=== PATIENT | female | born 1995 | race Caucasian/White ===

== ENCOUNTER 2018-08-21 13:16 | Emergency (ER) | payer SELFPAY ==
[2018-08-21] MEDS ORDERED: Sodium Chloride 0.9% 1,000 ML IV ONE (13:57)
[2018-08-21] MEDS ORDERED: Ondansetron 4 MG/2 ML SDV IVPUSH ONE (13:57)
--- NOTE | 2018-08-21 14:46 | CR ---
EXAMINATION: Portable chest radiograph. HISTORY: Cough. FINDINGS: The trachea is midline. The cardiomediastinal silhouette is within normal limits. No pulmonary infiltrates, effusions or pneumothorax. Osseous structures appear unremarkable. IMPRESSION: No acute cardiopulmonary process.
[2018-08-21] MEDS ORDERED: Acetaminophen 500 MG Tab PO ONE (15:07)
--- NOTE | 2018-08-21 15:10 | EDM.PDOC ---
ED HPI GENERAL MEDICAL PROBLEM - General Chief Complaint: Respiratory Problem Stated Complaint: COUGHING SICK Time Seen by Provider: 08/21/18 13:36 Source of Information: Reports: Patient History Limitations: Reports: No Limitations - History of Present Illness INITIAL COMMENTS - FREE TEXT/NARRATIVE: Presents reporting a three-day history of cough, fevers, nausea vomiting, dizziness. She states she threw up 3 times yesterday. No abdominal pain, diarrhea, constipation, dysuria. She has only drank 3 sips of oral fluids today. She is on her period but her periods have been very irregular and light. Smokes cigarettes. chest Pain Score (Numeric/FACES): 5 - Related Data Allergies Allergy/AdvReac Type Severity Reaction Status Date / Time No Known Allergies Allergy Verified 08/21/18 13:38 Home Meds: Home Meds Ondansetron [Zofran ODT] 1 tab PO Q6H PRN #4 tab.dis 08/21/18 [Rx] guaiFENesin/Codeine Phosphate [Cheratussin AC Syrup] 10 ml PO Q6HR PRN #1 bottle 08/21/18 [Rx] predniSONE [Prednisone] 2 tab PO DAILY #10 tablet 08/21/18 [Rx] Past Medical History - Past Health History Medical/Surgical History: Denies Medical/Surgical History - Infectious Disease History Infectious Disease History: Reports: Chicken Pox - Past Surgical History HEENT Surgical History: Reports: Oral Surgery Social & Family History - Family History Family Medical History: Noncontributory - Tobacco Use Smoking Status *Q: Current Every Day Smoker Years of Tobacco use: 3 Packs/Tins Daily: 0.3 - Caffeine Use Caffeine Use: Reports: Coffee, Energy Drinks, Soda, Tea - Recreational Drug Use Recreational Drug Use: No ED ROS GENERAL - Review of Systems Review Of Systems: ROS reveals no pertinent complaints other than HPI. ED EXAM, GENERAL - Physical Exam Exam: See Below General Appearance: Alert, Mild Distress Ears: Normal External Exam, Normal TMs Nose: Normal Inspection Throat/Mouth: Normal Inspection, Inflammation (Pharyngeal) Head: Atraumatic, Normocephalic Neck: Normal Inspection Respiratory/Chest: No Respiratory Distress, Lungs Clear Cardiovascular: Normal Peripheral Pulses, Regular Rate, Rhythm, No Murmur GI/Abdominal: Soft, Non-Tender, No Distention Back Exam: Normal Inspection Extremities: Normal Inspection Neurological: Alert, Oriented, Normal Cognition Psychiatric: Normal Affect, Normal Mood Skin Exam: Warm, Dry, Intact, Normal Color, No Rash Lymphatic: No Adenopathy Course - Vital Signs Last Recorded V/S: Last Vital Signs Temp 38.3 C H 08/21/18 13:35 Pulse 121 H 08/21/18 13:35 Resp 18 08/21/18 13:35 BP 112/74 08/21/18 13:35 Pulse Ox 95 08/21/18 13:35 - Orders/Labs/Meds Orders: Active Orders 24 hr Category Date Time Status Chest 1V Frontal [CR] Stat Exams 08/21/18 13:36 Ordered CBC WITH AUTO DIFF [HEME] Stat Lab 08/21/18 13:51 Ordered CMP [COMPREHENSIVE METABOLIC PN,CMP] [CHEM] Stat Lab 08/21/18 13:51 Ordered HCG QUALITATIVE,URINE [URCHEM] Stat Lab 08/21/18 13:36 Ordered INFLUENZA A+B AG SCREEN [RM] Stat Lab 08/21/18 13:42 Received STREP SCRN A RAPID W CULT CONF [RM] Stat Lab 08/21/18 13:46 Ordered Departure - Departure Time of Disposition: 16:03 Disposition: Home, Self-Care 01 Clinical Impression: Bronchitis Vomiting Qualifiers: Vomiting type: unspecified Vomiting Intractability: non-intractable Nausea presence: with nausea Qualified Code(s): R11.2 - Nausea with vomiting, unspecified - Discharge Information Referrals: PCP,Unknown [Primary Care Provider] - [facility] [Outside] [facility] [Outside] Additional Instructions: 1. Prednisone 20 mg tablets, 2 tablets once a day, starting today 2. Cough syrup every 6 hours as needed for cough, no driving or operating machinery 3. Zofran every 8 hours as needed for nausea 4. Drink plenty of fluids and rest. 5. BRAT diet today: Bananas, rice, applesauce, toast, advance as tolerated 6. Follow-up in primary care - My Orders Last 24 Hours: My Active Orders 08/21/18 13:51 CBC WITH AUTO DIFF [HEME] Stat CMP [COMPREHENSIVE METABOLIC PN,CMP] [CHEM] Stat - Assessment/Plan Last 24 Hours: My Active Orders 08/21/18 13:51 CBC WITH AUTO DIFF [HEME] Stat CMP [COMPREHENSIVE METABOLIC PN,CMP] [CHEM] Stat
== END 2018-08-21 16:25 | disposition home or self-care (01) ==
LOC: MW.ED 13:16
DX: J40 Bronchitis, not specified as acute or chronic (principal); R11.2 Nausea with vomiting, unspecified; F17.210 Nicotine dependence, cigarettes, uncomplicated
CPT/HCPCS: 36415; 71045; 80053; 81025; 85025; 87081; 87804; 87880; 96361; 96374; 99283; A9270; J2405; J7040

== ENCOUNTER 2020-04-09 09:16 | Emergency (ER) | payer BC ==
[2020-04-09] MEDS ORDERED: Sodium Chloride 0.9% 10 ML Syringe FLUSH PRN (09:34)
[2020-04-09] MEDS ORDERED: Acetaminophen 500 MG Tab PO ONE (09:34)
[2020-04-09] MEDS ORDERED: Sodium Chloride 0.9% 2.5 ML Syringe FLUSH PRN (09:34)
--- NOTE | 2020-04-09 09:38 | EDM.PDOC ---
ED HPI GENERAL MEDICAL PROBLEM - General Chief Complaint: Chest Pain Stated Complaint: CHEST PAINS Time Seen by Provider: 04/09/20 09:26 - History of Present Illness INITIAL COMMENTS - FREE TEXT/NARRATIVE: History of present illness: [] 31 weeks . She has been short of breath for more than 2 months. She has had ultrasounds documented IUP. The patient had fast heart rate this morning while she was at work. She has b een short of breath for 2 months but the heart rate was associated with a new chest pain in the left lateral sternal border. The size of the area of 2 fingers lateral to the upper part of the left sternal border she reports moderate pain. The patient has not been sleeping well at all. She works hard all day and she is on her feet all day. She does not have any recent immobilization or bedrest. She is not diabetic. She was a smoker until . She has a negative personal and family history of thromboembolic disease. She has not been immobilized in a cast. Review of systems: As per history of present illness and below otherwise all systems reviewed and negative. Past medical history: As per history of present illness and as reviewed below otherwise noncontributory. Surgical history: As per history of present illness and as reviewed below otherwise noncontributory. Social history: No reported history of drug or alcohol abuse. Family history: As per history of present illness and as reviewed below otherwise noncontributory. Physical exam: Constitutional -patient is moderately obese and has a gravid uterus consistent with the stated age of gestation. Well developed, well-nourished and in no acute distress HEENT - normocephalic, no evidence of trauma - external nose and mouth normal - no mass in neck and no JVD - mucosae moist EYES - full EOM, PERRL, no icterus - no evidence of inflammation, injection, or drainage Respiratory -slight tenderness in the left sternal border but it does not exactly reproduce her pain. No respiratory distress, equal bilateral expansion, lungs clear to auscultation and no abnormal lung sounds Cardiovascular - Regular Rhythm with S1 and S2 appreciated and no murmur, gallop or rub. GI - abdomen soft without distension or organomegaly - normal bowel sounds - no guard or rebound Musculoskeletal no gross deformity of long bones or joints - no tenderness, swelling or edema Neurologic - Alert and oriented times four - CN II-XII grossly intact - motor sensory and coordination symmetrically normal Psychiatric - appropriate mood and affect with normal thought content Hematologic - No petechiae or purpura - mucosa appropriate color and sclera not pale - normal nail bed color and refill Integument - no rash or evidence of trauma - normal turgor Diagnostics: [] Therapeutics: [] Impression: [] Plan: [] Definitive disposition and diagnosis as appropriate pending reevaluation and review of above. middle chest Pain Score (Numeric/FACES): 3 - Related Data Allergies Allergy/AdvReac Type Severity Reaction Status Date / Time No Known Allergies Allergy Verified 04/09/20 09:28 Home Meds: Home Meds Codeine Phosphate/Guaifenesin [Cheratussin AC Syrup] 10 ml PO Q6HR PRN #1 bottle 08/21/18 [Rx] Ondansetron [Zofran ODT] 1 tab PO Q6H PRN #4 tab.dis 08/21/18 [Rx] predniSONE [Prednisone] 2 tab PO DAILY #10 tablet 08/21/18 [Rx] Past Medical History - Past Health History Medical/Surgical History: Denies Medical/Surgical History - Infectious Disease History Infectious Disease History: Reports: Chicken Pox - Past Surgical History HEENT Surgical History: Reports: Oral Surgery Social & Family History - Family History Family Medical History: No Pertinent Family History - Tobacco Use Tobacco Use Status *Q: Former Tobacco User Used Tobacco, but Quit: Yes Month/Year Tobacco Last Used: 2019 - Caffeine Use Caffeine Use: Reports: None - Recreational Drug Use Recreational Drug Use: No ED ROS GENERAL - Review of Systems Review Of Systems: Comprehensive ROS is negative, except as noted in HPI. ED EXAM, GENERAL - Physical Exam Exam: See Below Free Text/Narrative:: My physical exam is in the HPI #1 Interpretation EKG Interpretation Comments: EKG sinus rhythm heart rate 95 MT interval 110 axis 39 QT 419 QRS normal. No prior for comparison. Impression no obvious acute injury. Course - Vital Signs Text/Narrative:: 11:11 AM there are 2 findings that make the consideration of pulmonary embolus more likely. Her D-dimers elevated more than I would expect with just a normal uneventful and the windows migration technician reported difficulty compressing the left femoral canal because of pain there. Patient understands that we will do a CT angio for her safety. Last Recorded V/S: Last Vital Signs Temp 36.6 C 12/17/20 09:19 Pulse 100 04/09/20 10:37 Resp 18 04/09/20 10:37 BP 138/79 04/09/20 10:37 Pulse Ox 97 04/09/20 10:37 - Orders/Labs/Meds Orders: Active Orders 24 hr Category Date Time Status EKG Documentation Completion [RC] AM Care 04/09/20 09:34 Active Sodium Chloride 0.9% [Saline Flush] Med 04/09/20 09:34 Active 10 ml FLUSH ASDIRECTED PRN Sodium Chloride 0.9% [Saline Flush] Med 04/09/20 09:34 Active 2.5 ml FLUSH ASDIRECTED PRN Saline Lock Insert [OM.PC] Stat Oth 04/09/20 09:34 Ordered Medication Orders Sodium Chloride (Saline Flush) 10 ml FLUSH ASDIRECTED PRN PRN Reason: Keep Vein Open Last Admin: 04/09/20 09:47 Dose: 10 ml Documented by: JODY Sodium Chloride (Saline Flush) 2.5 ml FLUSH ASDIRECTED PRN PRN Reason: Keep Vein Open Last Admin: 04/09/20 09:47 Dose: 2.5 ml Documented by: JODY Labs: Laboratory Tests 04/09/20 04/09/20 04/09/20 Range/Units 09:28 09:28 09:28 WBC 10.85 (4.0-11.0) K/uL RBC 4.02 L (4.30-5.90) M/uL Hgb 11.7 L (12.0-16.0) g/dL Hct 35.9 L (36.0-46.0) % MCV 89.3 (80.0-98.0) fL MCH 29.1 (27.0-32.0) pg MCHC 32.6 (31.0-37.0) g/dL RDW Std Deviation 43.5 (28.0-62.0) fl RDW Coeff of Chaka 13 (11.0-15.0) % Plt Count 255 (150-400) K/uL MPV 11.20 (7.40-12.00) fL Neut % (Auto) 66.4 (48.0-80.0) % Lymph % (Auto) 25.0 (16.0-40.0) % [place] % (Auto) 7.5 (0.0-15.0) % Eos % (Auto) 1.0 (0.0-7.0) % Baso % (Auto) 0.1 (0.0-1.5) % Neut # (Auto) 7.2 H (1.4-5.7) K/uL Lymph # (Auto) 2.7 H (0.6-2.4) K/uL [place] # (Auto) 0.8 (0.0-0.8) K/uL Eos # (Auto) 0.1 (0.0-0.7) K/uL Baso # (Auto) 0.0 (0.0-0.1) K/uL Nucleated RBC % 0.0 /100WBC Nucleated RBCs # 0 K/uL D-Dimer, Quantitative 3.78 H (0.0-0.50) mg/L FEU Sodium 136 (136-145) mmol/L Potassium 3.9 (3.5-5.1) mmol/L Chloride 104 (98-107) mmol/L Carbon Dioxide 18.2 L (21.0-32.0) mmol/L BUN 8 (7.0-18.0) mg/dL Creatinine 0.8 (0.6-1.0) mg/dL Est Cr Clr Drug Dosing 93.64 mL/min Estimated GFR (MDRD) > 60.0 ml/min Glucose 170 H (74-106) mg/dL Calcium 9.2 (8.5-10.1) mg/dL Total Bilirubin 0.2 (0.2-1.0) mg/dL AST 11 L (15-37) IU/L ALT 20 (14-63) IU/L Alkaline Phosphatase 108 (46-116) U/L Troponin I < 0.050 (0.000-0.056) ng/mL Total Protein 6.6 (6.4-8.2) g/dL Albumin 2.6 L (3.4-5.0) g/dL Globulin 4.0 (2.6-4.0) g/dL Albumin/Globulin Ratio 0.7 L (0.9-1.6) Meds: Medications Generic Name Dose Route Start Last Admin Trade Name Freq PRN Reason Stop Dose Admin Sodium Chloride 10 ml 04/09/20 09:34 04/09/20 09:47 Saline Flush FLUSH 10 ml ASDIRECTED PRN Administration Keep Vein Open Sodium Chloride 2.5 ml 04/09/20 09:34 04/09/20 09:47 Saline Flush FLUSH 2.5 ml ASDIRECTED PRN Administration Keep Vein Open Discontinued Medications Generic Name Dose Route Start Last Admin Trade Name Freq PRN Reason Stop Dose Admin Acetaminophen 1,000 mg 04/09/20 09:34 04/09/20 09:44 Tylenol Extra Strength PO 04/09/20 09:35 1,000 mg ONETIME ONE Administration Iopamidol 50 ml 04/09/20 12:25 04/09/20 12:25 Isovue Multipack-370 (76%) IVPUSH 04/09/20 12:26 50 ml ONETIME STA Administration Departure - Departure Time of Disposition: 12:54 Disposition: Home, Self-Care 01 Condition: Good Clinical Impression: Costochondritis, acute - Discharge Information Instructions: Costochondritis, [id number] Referrals: PCP,None [Primary Care Provider] - Forms: ED Department Discharge Additional Instructions: [facility] - Primary Care [address] [place] [id number] [id number] [facility] [address] [place] [id number] [facility] [address] [place] [id number] The following information is given to patients seen in the emergency department who are being discharged to home. This information is to outline your options for follow-up care. We provide all patients seen in our emergency department with a follow-up referral. The need for follow-up, as well as the timing and circumstances, are variable depending upon the specifics of your emergency department visit. If you don't have a primary care physician on staff, we will provide you with a referral. We always advise you to contact your personal physician following an emergency department visit to inform them of the circumstance of the visit and for follow-up with them and/or the need for any referrals to a consulting specialist. The emergency department will also refer you to a specialist when appropriate. This referral assures that you have the opportunity for follow-up care with a specialist. All of these measure are taken in an effort to provide you with optimal care, which includes your follow-up. Under all circumstances we always encourage you to contact your private physician who remains a resource for coordinating your care. When calling for follow-up care, please make the office aware that this follow-up is from your recent emergency room visit. If for any reason you are refused follow-up, please contact the [facility] Emergency Department at and asked to speak to the emergency department charge nurse. Sepsis Event Note (ED) - Evaluation Sepsis Screening Result: No Definite Risk - Focused Exam Vital Signs: Vital Signs Temp Pulse Resp BP Pulse Ox 04/09/20 10:37 100 18 138/79 97 04/09/20 09:19 36.6 C 95 20 148/92 H 99 - My Orders Last 24 Hours: My Active Orders 04/09/20 09:34 EKG Documentation Completion [RC] AM Sodium Chloride 0.9% [Saline Flush] 10 ml FLUSH ASDIRECTED PRN Sodium Chloride 0.9% [Saline Flush] 2.5 ml FLUSH ASDIRECTED PRN Saline Lock Insert [OM.PC] Stat - Assessment/Plan Last 24 Hours: My Active Orders 04/09/20 09:34 EKG Documentation Completion [RC] AM Sodium Chloride 0.9% [Saline Flush] 10 ml FLUSH ASDIRECTED PRN Sodium Chloride 0.9% [Saline Flush] 2.5 ml FLUSH ASDIRECTED PRN Saline Lock Insert [OM.PC] Stat
[2020-04-09 10:01] LABS: BLOOD UREA NITROGEN,BUN 8 mg/dL (7.0-18.0); CARBON DIOXIDE,CO2 18.2 mmol/L (21.0-32.0); CHLORIDE,CL 104 mmol/L (98-107); GLUCOSE RANDOM 170 mg/dL (74-106); POTASSIUM,K 3.9 mmol/L (3.5-5.1); SODIUM,NA 136 mmol/L (136-145)
--- NOTE | 2020-04-09 10:10 | CR ---
INDICATION: Chest pain COMPARISON: August 21, 2018 TECHNIQUE: Single-view portable chest radiograph FINDINGS: TUBES AND LINES: None. HEART AND MEDIASTINUM: The heart size is normal. The mediastinal contour appears normal for patient age. LUNGS AND PLEURAL SPACES: The lungs appear normal.The pleural spaces are unremarkable. OSSEOUS STRUCTURES: Age-appropriate appearance. No acute focal finding. IMPRESSION: No evidence of active pulmonary disease. Dictated by Srini Lang MD @ Apr 09 2020 10:07AM Signed by Dr. Srini Lang @ Apr 09 2020 10:08AM
--- NOTE | 2020-04-09 10:43 | US ---
INDICATION: Chest pain. COMPARISON: None FINDINGS: Ultrasound of the venous drainage of both lower extremities shows no evidence of deep venous thrombosis. There is normal antegrade flow from the posterior tibial and popliteal veins superiorly through the common femoral vein in both legs. There is normal augmentation and compressibility of these veins. The left common femoral vein and superficial femoral vein were difficult to compress because of pain. However, we demonstrated normal Doppler and augmentation in this area. There were no limitations in visualization on the right. IMPRESSION: There is no evidence of deep venous thrombosis in either lower extremity. There were some technical limitations regarding the left side as discussed above Dictated by Srini Lang MD @ Apr 09 2020 10:39AM Signed by Dr. Srini Lang @ Apr 09 2020 10:42AM
[2020-04-09] MEDS ORDERED: Iopamidol 755 MG/ML 500 ML Multipack Bottle IVPUSH STA (12:25)
--- NOTE | 2020-04-09 12:45 | CT ---
INDICATION: Shortness of breath. Thirty[age]one weeks . TECHNIQUE: CT chest PE was acquired with 50 cc Isovue 370 IV contrast. COMPARISON: None. FINDINGS: Heart and vasculature: No sign of moderate to large or central pulmonary embolism. Smaller pulmonary arteries are not adequately assessed on this exam. Heart size is normal. Thoracic aorta and pulmonary artery are normal in caliber. Lungs and pleural: No suspicious nodules or infiltrates. No pleural effusions, pleural thickening, or pneumothorax. Lymph nodes/mediastinum: No mediastinal, hilar, or axillary adenopathy. Thyroid gland is normal. Chest wall: No masses. Upper abdomen: Normal. Bones: Unremarkable for age. IMPRESSION: Negative CT of the chest. No sign of pulmonary embolism and the lungs are clear. Please note that all CT scans at this facility use dose modulation, iterative reconstruction, and/or weight-based dosing when appropriate to reduce radiation dose to as low as reasonably achievable. Dictated by Adolph Michelle MD @ Apr 09 2020 12:37PM Signed by Dr. Adolph Michelle @ Apr 09 2020 12:44PM
== END 2020-04-09 13:20 | disposition home or self-care (01) ==
LOC: MW.ED 09:16
DX: O99.891 Other specified diseases and conditions complicating pregnancy (principal); M94.0 Chondrocostal junction syndrome [Tietze]; O99.213 Obesity complicating pregnancy, third trimester; E66.9 Obesity, unspecified; Z87.891 Personal history of nicotine dependence; Z3A.31 31 weeks gestation of pregnancy
CPT/HCPCS: 36415; 71045; 71275; 80053; 84484; 85025; 85379; 93005; 93970; 99285; A9270; Q9967; 93010; 99283

== ENCOUNTER 2020-05-05 22:17 | Inpatient (IN) | payer BC ==
[2020-05-05] MEDS ORDERED: Sodium Chloride 0.9% 10 ML SDV IV PRN (22:32)
[2020-05-05] MEDS ORDERED: Sodium Chloride 0.9% 10 ML Syringe FLUSH PRN (22:32)
[2020-05-05] MEDS ORDERED: Carboprost Tromethamine 250 MCG/1 ML Amp IM PRN (22:32)
[2020-05-05] MEDS ORDERED: Tranexamic Acid 1,000 MG in Sodium Chloride 0.9% 100 ML IV PRN (22:32)
[2020-05-05] MEDS ORDERED: Lidocaine 1% 50 ML MDV INJECT PRN (22:32)
[2020-05-05] MEDS ORDERED: Methylergonovine 0.2 MG/1 ML Amp IM PRN (22:32)
[2020-05-05] MEDS ORDERED: Water For Irrigation,Sterile 1,000 ML Container IRR PRN (22:32)
[2020-05-05] MEDS ORDERED: Sodium Chloride 0.9% 2.5 ML Syringe FLUSH PRN (22:32)
[2020-05-05] MEDS ORDERED: Misoprostol 200 MCG Tab PO PRN (22:32)
[2020-05-05] MEDS ORDERED: Nalbuphine 10 MG/1 ML Vial IVPUSH PRN (22:32)
[2020-05-05] MEDS ORDERED: Oxytocin/0.9 % Sodium Chloride 30 UNIT/500 ML BAG IV SCH (22:45)
[2020-05-05] MEDS ORDERED: Lactated Ringers 1,000 ML IV SCH (22:45)
[2020-05-06] MEDS ORDERED: Ampicillin 2 GM in Sodium Chloride 0.9% 100 ML IV ONE (00:01)
[2020-05-06] MEDS: Butorphanol 1 MG/ML SDV IVPUSH PRN ×2 (00:13→01:38)
--- NOTE | 2020-05-06 00:55 | PCM.LDHP ---
L&D History of Present Illness - General Date of Service: 05/06/20 Admit Problem/Dx: Patient Status Order with Admit Dx/Problem 05/05/20 22:32 Patient Status [ADT] Routine Admission Diagnosis/Problem Admission Diagnosis/Problem Planned Source of Information: Patient History Limitations: Reports: No Limitations - History of Present Illness Pain Score: 10 Improves with: Reports: None Worsens with: Reports: None Associated Symptoms: Reports: N - Related Data Allergies/Adverse Reactions: Allergies Allergy/AdvReac Type Severity Reaction Status Date / Time No Known Allergies Allergy Verified 05/05/20 22:31 Home Medications: Home Meds Codeine Phosphate/Guaifenesin [Cheratussin AC Syrup] 10 ml PO Q6HR PRN #1 bottle 08/21/18 [Rx] Ondansetron [Zofran ODT] 1 tab PO Q6H PRN #4 tab.dis 08/21/18 [Rx] predniSONE [Prednisone] 2 tab PO DAILY #10 tablet 08/21/18 [Rx] Past Medical History - Past Health History Medical/Surgical History: Denies 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: Dermatologic History: Reports: Other (See Below) Other Dermatologic History: pt stated that she is on benadryl for constant itc agnes over entire body - Infectious Disease History Infectious Disease History: Reports: Chicken Pox - Past Surgical History HEENT Surgical History: Reports: Oral Surgery, Other (See Below) Other HEENT Surgeries/Procedures: wisdom teeth removed when she was around 16-17 years of age Dermatological Surgical History: Reports: None Social & Family History - Family History Family Medical History: No Pertinent Family History Respiratory: Reports: Asthma Other Respiratory Family Hisory: sister has asthma OBGYN: Reports: Endocrine/Metabolic: Reports: Other (See Below) Other Endocrine/Metabolic Family History: Grandfather has Diabetes type unknown Oncologic: Reports: Ovarian, Other (See Below) Other Oncologic Family History: greatgrandmother had ovarian cancer, grandma has either cervical or breast cancer pt could no recall which one though - Tobacco Use Tobacco Use Status *Q: Former Tobacco User Years of Tobacco use: 3 Used Tobacco, but Quit: Yes Month/Year Tobacco Last Used: September 2019 Second Hand Smoke Exposure: No - Caffeine Use Caffeine Use: Reports: Coffee, Soda - Recreational Drug Use Recreational Drug Use: No H&P Review of Systems - Review of Systems: Review Of Systems: See Below General: Reports: No Symptoms HEENT: Reports: No Symptoms Pulmonary: Reports: No Symptoms Cardiovascular: Reports: No Symptoms Gastrointestinal: Reports: No Symptoms Genitourinary: Reports: No Symptoms Musculoskeletal: Reports: No Symptoms Skin: Reports: No Symptoms Psychiatric: Reports: No Symptoms Neurological: Reports: No Symptoms Hematologic/Lymphatic: Reports: No Symptoms Immunologic: Reports: No Symptoms L&D Exam - Exam Exam: See Below - Vital Signs Weight: 114.305 kg - OB Specific Contraction Intensity: Moderate - Shah Score Shah Score Cervix Position: Midposition Shah Score Consistency: Soft Shah Score Effacement: >80% Shah Score Dilation: 1-2 cm - Exam General: Alert, Oriented HEENT: PERRLA, Conjunctiva Clear, EACs Clear, EOMI, Hearing Intact, Mucosa Moist & [place], Nares Patent, Normal Nasal Septum, Posterior Pharynx Clear, TMs Clear Neck: Supple, Trachea Midline Lungs: Clear to Auscultation, Normal Respiratory Effort Cardiovascular: Regular Rate, Regular Rhythm GI/Abdominal Exam: Normal Bowel Sounds, Soft, Non-Tender, No Organomegaly, No Distention, No Abnormal Bruit, No Mass, Pelvis Stable Rectal Exam: Normal Exam, Normal Rectal Tone Genitourinary: Normal external exam, Normal bimanual exam, Normal speculum exam Back Exam: Normal Inspection, Full Range of Motion Extremities: Normal Inspection, Normal Range of Motion, Non-Tender, No Pedal Edema, Normal Capillary Refill Skin: Warm, Dry, Intact Neurological: Cranial Nerves Intact, Reflexes Equal Bilateral Psychiatric: Alert, Normal Affect, Normal Mood - Patient Data Lab Results Last 24 hrs: Laboratory Results - last 24 hr 05/05/20 05/05/20 Range/Units 23:25 23:25 WBC 12.81 H (4.0-11.0) K/uL RBC 3.86 L (4.30-5.90) M/uL Hgb 11.0 L (12.0-16.0) g/dL Hct 33.4 L (36.0-46.0) % MCV 86.5 (80.0-98.0) fL MCH 28.5 (27.0-32.0) pg MCHC 32.9 (31.0-37.0) g/dL RDW Std Deviation 43.1 (28.0-62.0) fl RDW Coeff of Chaka 14 (11.0-15.0) % Plt Count 241 (150-400) K/uL MPV 11.90 (7.40-12.00) fL Nucleated RBC % 0.0 /100WBC Nucleated RBCs # 0 K/uL Blood Type O POSITIVE Antibody Screen NEGATIVE Result Diagrams: 05/05/20 23:25 Problem List Initiated/Reviewed/Updated: Yes Orders Last 24hrs: Active Orders 24 hr Category Date Time Status Patient Status [ADT] Routine ADT 05/05/20 22:32 Active Heart Tones [RC] CONTINUOUS Care 05/05/20 22:32 Active Non Stress Test [RC] PER UNIT ROUTINE Care 05/05/20 22:32 Active May Shower [RC] ASDIRECTED Care 05/05/20 22:32 Active Notify Provider [RC] PRN Care 05/05/20 22:32 Active Up ad Zee [RC] ASDIRECTED Care 05/05/20 22:32 Active Vaginal Exam [RC] PRN Care 05/05/20 22:32 Active Vital Signs [RC] PER UNIT ROUTINE Care 05/05/20 22:32 Active RPR (SYPHILIS SERO) W/ RFLX [REF] Routine Lab 05/05/20 23:25 Received UA W/O MICROSCOPIC [URIN] Routine Lab 05/05/20 22:05 Ordered Butorphanol [Stadol] Med 05/05/20 22:32 Active 1 mg IVPUSH Q1H PRN Carboprost Tromethamine [Hemabate DS] Med 05/05/20 22:32 Active 250 mcg IM ASDIRECTED PRN Lactated Ringers [Ringers, Lactated] 1,000 ml Med 05/05/20 22:45 Active IV ASDIRECTED Lidocaine 1% [Xylocaine 1%] Med 05/05/20 22:32 Active 50 ml INJECT ONETIME PRN Methylergonovine [Methergine] Med 05/05/20 22:32 Active 0.2 mg IM ASDIRECTED PRN Nalbuphine [Nubain] Med 05/05/20 22:32 Active 10 mg IVPUSH Q1H PRN Oxytocin/0.9 % Sodium Chloride [Oxytocin 30 Unit/500 ML Med 05/05/20 22:45 Active -NS] 30 unit in 500 ml IV TITRATE Sodium Chloride 0.9% [Normal Saline] Med 05/05/20 22:32 Active 10 ml IV ASDIRECTED PRN Sodium Chloride 0.9% [Saline Flush] Med 05/05/20 22:32 Active 10 ml FLUSH ASDIRECTED PRN Sodium Chloride 0.9% [Saline Flush] Med 05/05/20 22:32 Active 2.5 ml FLUSH ASDIRECTED PRN Tranexamic Acid [Cyklokapron] 1,000 mg Med 05/05/20 22:32 Active Sodium Chloride 0.9% [Normal Saline] 100 ml IV ONETIME Water For Irrigation,Sterile [Sterile Water for Med 05/05/20 22:32 Active Irrigation] 1,000 ml IRR ASDIRECTED PRN miSOPROStoL [Cytotec] Med 05/05/20 22:32 Active 200 mcg PO ONETIME PRN Scalp Electrode [WOMSER] Per Unit Routine Oth 05/05/20 22:32 Ordered Peripheral IV Insertion Adult [OM.PC] Routine Oth 05/05/20 22:32 Ordered Resuscitation Status Routine Resus Stat 05/05/20 22:32 Ordered Medication Orders Butorphanol Tartrate (Stadol) 1 mg IVPUSH Q1H PRN PRN Reason: Pain Last Admin: 05/06/20 00:13 Dose: 1 mg Documented by: DIANN Carboprost Tromethamine (Hemabate Ds) 250 mcg IM ASDIRECTED PRN PRN Reason: Post Hemorrhage Oxytocin/Sodium Chloride (Oxytocin 30 Unit/500 Ml-Ns) 30 unit in 500 mls @ 500 mls/hr IV TITRATE [facility] Tranexamic Acid 1,000 mg/ (Sodium Chloride) 110 mls @ 660 mls/hr IV ONETIME PRN PRN Reason: Bleeding Lactated Ringer's (Ringers, Lactated) 1,000 mls @ 150 mls/hr IV ASDIRECTED SABI Last Admin: 05/06/20 00:17 Dose: 150 mls/hr Documented by: DIANN Lidocaine HCl (Xylocaine 1%) 50 ml INJECT ONETIME PRN PRN Reason: Laceration repair Methylergonovine Maleate (Methergine) 0.2 mg IM ASDIRECTED PRN PRN Reason: Post Hemorrhage Misoprostol (Cytotec) 200 mcg PO ONETIME PRN PRN Reason: Post Hemorrhage Nalbuphine HCl (Nubain) 10 mg IVPUSH Q1H PRN PRN Reason: Pain (severe 7-10) Sodium Chloride (Saline Flush) 10 ml FLUSH ASDIRECTED PRN PRN Reason: Keep Vein Open Sodium Chloride (Saline Flush) 2.5 ml FLUSH ASDIRECTED PRN PRN Reason: Keep Vein Open Sodium Chloride (Normal Saline) 10 ml IV ASDIRECTED PRN PRN Reason: IV Use Sterile Water (Sterile Water For Irrigation) 1,000 ml IRR ASDIRECTED PRN PRN Reason: delivery Assessment/Plan Comment:: [id number] admitted with SROM and in active labor.
[2020-05-06] MEDS ORDERED: fentaNYL 100 MCG/2 ML SDV ONE (03:06)
[2020-05-06] MEDS ORDERED: Bupivicaine/fentaNYL/NS 250 ML ONE (03:07)
--- NOTE | 2020-05-06 03:48 | PCM.PREANE ---
Preanesthetic Assessment - Anesthesia/Transfusion/Family Hx Anesthesia History: Prior Anesthesia Without Reaction Family History of Anesthesia Reaction: No Transfusion History: No Prior Transfusion(s) Intubation History: Unknown - Review of Systems General: No Symptoms Pulmonary: No Symptoms Cardiovascular: No Symptoms Gastrointestinal: Abdominal Pain (labor pain) Neurological: No Symptoms Other: Reports: None - Physical Assessment Height: 5 ft 4 in Weight: 114.305 kg ASA Class: 2 Mental Status: Alert & Oriented x3 Airway Class: Mallampati = 2 Dentition: Reports: Normal Dentition Thyro-Mental Finger Breadths: 3 Mouth Opening Finger Breadths: 3 ROM/Head Extension: Full Lungs: Clear to Auscultation, Normal Respiratory Effort Cardiovascular: Regular Rate, Regular Rhythm - Lab Values: Laboratory Last Values WBC 12.81 K/uL (4.0-11.0) H 05/05/20 23: RBC 3.86 M/uL (4.30-5.90) L 05/05/20 23:25 Hgb 11.0 g/dL (12.0-16.0) L 05/05/20 23:25 Hct 33.4 % (36.0-46.0) L 05/05/20 23:25 MCV 86.5 fL (80.0-98.0) 05/05/20 23:25 MCH 28.5 pg (27.0-32.0) 05/05/20 23: MCHC 32.9 g/dL (31.0-37.0) 05/05/20 23:25 RDW Std Deviation 43.1 fl (28.0-62.0) 05/05/20 23:25 RDW Coeff of Chaka 14 % (11.0-15.0) 05/05/20 23:25 Plt Count 241 K/uL (150-400) 05/05/20 23:25 MPV 11.90 fL (7.40-12.00) 05/05/20 23: Nucleated RBC % 0.0 /100WBC 05/05/20 23:25 Nucleated RBCs # 0 K/uL 05/05/20 23:25 SARS-CoV-2 RNA (BETH) NEGATIVE (NEGATIVE) 05/05/20 23:35 Blood Type O POSITIVE 05/05/20 23: Antibody Screen NEGATIVE 05/05/20 23:25 - Allergies Allergies/Adverse Reactions: Allergies Allergy/AdvReac Type Severity Reaction Status Date / Time No Known Allergies Allergy Verified 05/05/20 22:31 - Blood Blood Available: No - Anesthesia Plan Pre-Op Medication Ordered: None - Acknowledgements Anesthesia Type Planned: Epidural Pt an Appropriate Candidate for the Planned Anesthesia: Yes Alternatives and Risks of Anesthesia Discussed w Pt/Guardian: Yes Pt/Guardian Understands and Agrees with Anesthesia Plan: Yes PreAnesthesia Questionnaire - Past Health History Medical/Surgical History: Denies 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: Endocrine/Metabolic History: Reports: Obesity/BMI 30+ Dermatologic History: Reports: Other (See Below) Other Dermatologic History: pt stated that she is on benadryl for constant itching over entire body - Infectious Disease History Infectious Disease History: Reports: Chicken Pox - Past Surgical History HEENT Surgical History: Reports: Oral Surgery, Other (See Below) Other HEENT Surgeries/Procedures: wisdom teeth removed when she was around 16-17 years of age Dermatological Surgical History: Reports: None - SUBSTANCE USE Tobacco Use Status *Q: Former Tobacco User Tobacco Use Within Last Twelve Months: No Second Hand Smoke Exposure: No Recreational Drug Use History: No - HOME MEDS Home Medications: Home Meds Codeine Phosphate/Guaifenesin [Cheratussin AC Syrup] 10 ml PO Q6HR PRN #1 bottle 08/21/18 [Rx] Ondansetron [Zofran ODT] 1 tab PO Q6H PRN #4 tab.dis 08/21/18 [Rx] predniSONE [Prednisone] 2 tab PO DAILY #10 tablet 08/21/18 [Rx] - CURRENT (IN HOUSE) MEDS Current Meds: Current Medications Butorphanol Tartrate (Stadol) 1 mg IVPUSH Q1H PRN PRN Reason: Pain Last Admin: 05/06/20 01:38 Dose: 1 mg Documented by: Carboprost Tromethamine (Hemabate Ds) 250 mcg IM ASDIRECTED PRN PRN Reason: Post Hemorrhage Oxytocin/Sodium Chloride (Oxytocin 30 Unit/500 Ml-Ns) 30 unit in 500 mls @ 500 mls/hr IV TITRATE SABI Tranexamic Acid 1,000 mg/ (Sodium Chloride) 110 mls @ 660 mls/hr IV ONETIME PRN PRN Reason: Bleeding Lactated Ringer's (Ringers, Lactated) 1,000 mls @ 150 mls/hr IV ASDIRECTED [facility] Last Admin: 05/06/20 00:17 Dose: 150 mls/hr Documented by: Ampicillin Sodium 1 gm/ Sodium (Chloride) 50 mls @ 100 mls/hr IV Q4H [facility] Lidocaine HCl (Xylocaine 1%) 50 ml INJECT ONETIME PRN PRN Reason: Laceration repair Methylergonovine Maleate (Methergine) 0.2 mg IM ASDIRECTED PRN PRN Reason: Post Hemorrhage Misoprostol (Cytotec) 200 mcg PO ONETIME PRN PRN Reason: Post Hemorrhage Nalbuphine HCl (Nubain) 10 mg IVPUSH Q1H PRN PRN Reason: Pain (severe 7-10) Sodium Chloride (Saline Flush) 10 ml FLUSH ASDIRECTED PRN PRN Reason: Keep Vein Open Sodium Chloride (Saline Flush) 2.5 ml FLUSH ASDIRECTED PRN PRN Reason: Keep Vein Open Sodium Chloride (Normal Saline) 10 ml IV ASDIRECTED PRN PRN Reason: IV Use Sterile Water (Sterile Water For Irrigation) 1,000 ml IRR ASDIRECTED PRN PRN Reason: delivery Discontinued Medications Fentanyl (Sublimaze) Confirm Administered Dose 100 mcg .ROUTE .BOLD [employer] ONE Stop: 05/06/20 03:07 Ampicillin Sodium 2 gm/ Sodium (Chloride) 100 mls @ 200 mls/hr IV ONETIME ONE Stop: 05/06/20 00:30 Last Admin: 05/06/20 00:16 Dose: 200 mls/hr Documented by: Fentanyl/Bupivacaine HCl (Fentanyl/Bupivacaine/Ns 2 Mcg-0.125% 250 Ml) Confirm Administered Dose 250 mls @ as directed .ROUTE .[facility]riendas.cl-MED ONE Stop: 05/06/20 03:08
[2020-05-06] MEDS ORDERED: Ampicillin 1 GM in Sodium Chloride 0.9% 50 ML IV SCH ×4 (04:00)
[2020-05-06] MEDS ORDERED: ePHEDrine 50 MG/ML SDV ONE (04:15)
[2020-05-06] MEDS ORDERED: Ampicillin 1 GM Vial ONE (04:15)
[2020-05-06] MEDS ORDERED: Sodium Chloride 0.9% 50 ML ONE (04:15)
--- NOTE | 2020-05-06 05:03 | PCM.SN.2 ---
- Free Text/Narrative Note: Ned was called into the patient's room and given an update on this patient whose epidural and management was being provided by Dr. Hernandez (Darryl) by Mariella DENNY. She mentions that they would like to stop the epidural for now until the baby recovers. Vera was made aware of the plan, and that by stopping the epidural, that the labor pains would return. Vera is currently dilated to 9cm. Once the baby recovers, Mariella will contact me.
[2020-05-06] MEDS ORDERED: Benzocaine/Menthol 20%-0.5% Spray 78 GM Cannister TOP PRN (06:28)
[2020-05-06] MEDS ORDERED: Ibuprofen 800 MG Tab PO PRN (06:28)
[2020-05-06] MEDS ORDERED: Witch Hazel Medicated Pads 40/Jar TOP PRN (06:28)
[2020-05-06] MEDS ORDERED: oxyCODONE 5 MG Tab PO PRN (06:28)
[2020-05-06] MEDS ORDERED: Bisacodyl 10 MG Supp RECTAL PRN (06:28)
[2020-05-06] MEDS ORDERED: Ibuprofen 400 MG Tab PO PRN (06:28)
[2020-05-06] MEDS ORDERED: Lanolin 100% Cream 7 GM Tube TOP PRN (06:28)
[2020-05-06] MEDS ORDERED: Acetaminophen 500 MG Tab PO PRN (06:28)
[2020-05-06] MEDS ORDERED: Furosemide 20 MG Tab PO ONE (06:30)
--- NOTE | 2020-05-06 07:49 | OR ---
SURGEON: Adis Leal MD DATE OF PROCEDURE: 05/06/2020 DELIVERY NOTE Ms. Louis is a 24-year-old patient. She is primigravida. She is 35 plus 4. She is followed in our clinic jointly by myself and the nurse loom cleaner. The patient's care was uncomplicated until late in her where it was complicated, started with having fluctuating and elevated blood pressure. The patient is admitted to Labor and Delivery at 35 plus 4 days with spontaneous rupture of the membranes. At the time of the admission, she was dilated to 3 cm, vertex, 90%, and -2 station. Her amniotic fluid was clear. She was having contraction every 2 to 3 minutes, adequate and moderate in strength contraction. The patient continued to labor on her own without the aid of any stimulation and she progressed nicely. She had epidural anesthesia at 8 to 9 cm, and after that she became complete complete at 6 a.m. and then after pushing for about 45 minutes the patient accomplished normal spontaneous vaginal delivery, female fetus. The blood bank technician was in attendance at the delivery. The fetus cried immediately. score and weight is not available at this time. The placenta delivered spontaneous, complete, and intact, and there was no labial, vaginal, or perineal laceration. Estimated blood loss was 300 to 350 mL. heart rate was category 1 through the entire process of labor. There was no complication in the labor and in the delivery process of this patient. JULIANNA / AGNIESZKA /[id number]
[2020-05-06] MEDS ORDERED: Calcium Carbonate 500 MG Tab.Chew PO PRN (09:02)
[2020-05-06] MEDS: Acetaminophen 500 MG Tab PO PRN (15:46)
[2020-05-06] MEDS ORDERED: Furosemide 20 MG/2 ML VIAL IVPUSH ONE (17:21)
[2020-05-06] MEDS ORDERED: Aluminum Hydroxide/Magnesium Hydroxide/Simethicone Susp 30 ML Cup PO ONE (17:22)
[2020-05-06] MEDS: Docusate Sodium 100 MG Cap PO PRN (21:13)
[2020-05-07] MEDS ORDERED: Furosemide 20 MG/2 ML VIAL IVPUSH ONE ×2 (06:00→18:29)
[2020-05-07] MEDS: Acetaminophen 500 MG Tab PO PRN ×2 (08:21→18:42)
--- NOTE | 2020-05-07 08:41 | PCM48HPAN ---
Post Anesthesia Note - EVALUATION WITHIN 48HRS OF ANESTHETIC Vital Signs in Normal Range: Yes Patient Participated in Evaluation: Yes Respiratory Function Stable: Yes Airway Patent: Yes Cardiovascular Function Stable: Yes Hydration Status Stable: Yes Pain Control Satisfactory: Yes Nausea and Vomiting Control Satisfactory: Yes Mental Status Recovered: Yes Vital Signs: Last Vital Signs Temp 36.8 C 05/07/20 05:12 Pulse 102 H 05/07/20 05:12 Resp 17 05/07/20 05:12 BP 139/73 05/07/20 05:12 Pulse Ox 97 05/07/20 05:12 - COMMENTS/OBSERVATIONS Free Text/Narrative:: Reports mild lumbar soreness, and mild to moderate incisional pain, with satisfactory pain control. Pt has marked LE edema bilat., and has received lasix. Pt reports transient numbness/tingling in feet, and a spot of numbness, pain, heat, and firmness in posterior right thigh. Exacerbated with sitting, and pain is relieved with standing/walking. I suspect these symptoms are related to the significant LE edema. Both patient and RN instructed to report to anesthesia if symptoms worsen, if new areas of numbness develop, or if other neurologic symptoms manifest. Dr. Meier. is aware of these symptoms and following as well, per RN. Ambulating well without assistance, reports full return of strength to BLE.
--- NOTE | 2020-05-07 18:01 | PCM.PNPP ---
- General Info Date of Service: 05/07/20 Admission Dx/Problem (Free Text): Patient Status Order with Admit Dx/Problem 05/05/20 22:32 Patient Status [ADT] Routine Admission Diagnosis/Problem Admission Diagnosis/Problem Planned Subjective Update: 24yo G1 now P1 s/p uncomplicated at 35w5d after SROM. c/b pre-eclampsia and significant pedal edema. care unremarkable. Patient has received 20mg lasix BID for diuresis purpose. Patient reports significant urine output and improvment of the swelling and legs tightness and tenderness. Denies localized legs pain, tingling or numbness. Minimal bleeding, and pain well control. Ambulate without dizziness Functional Status: Reports: Pain Controlled - Review of Systems General: Reports: No Symptoms HEENT: Reports: No Symptoms Pulmonary: Reports: No Symptoms Cardiovascular: Reports: No Symptoms Gastrointestinal: Reports: No Symptoms Genitourinary: Reports: No Symptoms Musculoskeletal: Reports: No Symptoms Skin: Reports: No Symptoms Neurological: Reports: No Symptoms Psychiatric: Reports: No Symptoms - General Info Date of Service: 05/07/20 - Patient Data Vital Signs - Most Recent: Last Vital Signs Temp 98.1 F 05/07/20 16:06 Pulse 94 05/07/20 16:06 Resp 17 05/07/20 16:06 BP 158/71 H 05/07/20 16:06 Pulse Ox 100 05/07/20 16:06 Weight - Most Recent: 114.305 kg I&O - Last 24 Hours: Intake & Output 05/07/20 05/07/20 05/07/20 06:59 14:59 22:59 Intake Total 118 Output Total 3700 1000 Balance -3582 -1000 Lab Results - Last 24 Hours: Laboratory Results - last 24 hr 05/07/20 05/07/20 Range/Units 04:40 04:40 WBC 14.60 H (4.0-11.0) K/uL RBC 3.29 L (4.30-5.90) M/uL Hgb 9.3 L (12.0-16.0) g/dL Hct 29.0 L (36.0-46.0) % MCV 88.1 (80.0-98.0) fL MCH 28.3 (27.0-32.0) pg MCHC 32.1 (31.0-37.0) g/dL RDW Std Deviation 44.4 (28.0-62.0) fl RDW Coeff of Chaka 14 (11.0-15.0) % Plt Count 225 (150-400) K/uL MPV 11.50 (7.40-12.00) fL Nucleated RBC % 0.0 /100WBC Nucleated RBCs # 0 K/uL Creatinine 0.8 (0.6-1.0) mg/dL Est Cr Clr Drug Dosing 93.64 mL/min Estimated GFR (MDRD) > 60.0 ml/min Med Orders - Current: Current Medications Acetaminophen (Tylenol Extra Strength) 500 mg PO Q4H PRN PRN Reason: Pain Acetaminophen (Tylenol Extra Strength) 1,000 mg PO Q4H PRN PRN Reason: Pain Last Admin: 05/07/20 08:21 Dose: 1,000 mg Documented by: Benzocaine/Menthol (Dermoplast Pain Relief 20%-0.5% [place]) 78 gm TOP ASDIRECTED PRN PRN Reason: Perineal Comfort Measure Bisacodyl (Dulcolax) 10 mg RECTAL ONETIME PRN PRN Reason: Constipation Last Admin: 05/06/20 23:27 Dose: 10 mg Documented by: Butorphanol Tartrate (Stadol) 1 mg IVPUSH Q1H PRN PRN Reason: Pain Last Admin: 05/06/20 01:38 Dose: 1 mg Documented by: Calcium Carbonate/Glycine (Tums) 1,000 mg PO Q2HR PRN PRN Reason: Indigestion Last Admin: 05/06/20 11:53 Dose: 1,000 mg Documented by: Carboprost Tromethamine (Hemabate Ds) 250 mcg IM ASDIRECTED PRN PRN Reason: Post Hemorrhage Docusate Sodium (Colace) 100 mg PO BID PRN PRN Reason: Constipation Last Admin: 05/06/20 21:13 Dose: 100 mg Documented by: Emollient Ointment (Lansinoh Hpa) 0 gm TOP ASDIRECTED PRN PRN Reason: Sore Nipples Oxytocin/Sodium Chloride (Oxytocin 30 Unit/500 Ml-Ns) 30 unit in 500 mls @ 500 mls/hr IV TITRATE [facility] Last Admin: 05/06/20 06:19 Dose: 500 mls/hr Documented by: Tranexamic Acid 1,000 mg/ (Sodium Chloride) 110 mls @ 660 mls/hr IV ONETIME PRN PRN Reason: Bleeding Lactated Ringer's (Ringers, Lactated) 1,000 mls @ 150 mls/hr IV ASDIRECTED [facility] Last Admin: 05/06/20 00:17 Dose: 150 mls/hr Documented by: Ampicillin Sodium 1 gm/ Sodium (Chloride) 50 mls @ 100 mls/hr IV Q4H [facility] Last Admin: 05/06/20 04:42 Dose: 100 mls/hr Documented by: Ibuprofen (Motrin) 400 mg PO Q4H PRN PRN Reason: Pain Ibuprofen (Motrin) 800 mg PO Q6H PRN PRN Reason: Pain Last Admin: 05/06/20 11:53 Dose: 800 mg Documented by: Lidocaine HCl (Xylocaine 1%) 50 ml INJECT ONETIME PRN PRN Reason: Laceration repair Methylergonovine Maleate (Methergine) 0.2 mg IM ASDIRECTED PRN PRN Reason: Post Hemorrhage Misoprostol (Cytotec) 200 mcg PO ONETIME PRN PRN Reason: Post Hemorrhage Nalbuphine HCl (Nubain) 10 mg IVPUSH Q1H PRN PRN Reason: Pain (severe 7-10) Oxycodone HCl (Oxycodone) 5 mg PO Q2H PRN PRN Reason: Pain Sodium Chloride (Saline Flush) 10 ml FLUSH ASDIRECTED PRN PRN Reason: Keep Vein Open Sodium Chloride (Saline Flush) 2.5 ml FLUSH ASDIRECTED PRN PRN Reason: Keep Vein Open Sodium Chloride (Normal Saline) 10 ml IV ASDIRECTED PRN PRN Reason: IV Use Sterile Water (Sterile Water For Irrigation) 1,000 ml IRR ASDIRECTED PRN PRN Reason: delivery Witch Connie (Tucks) 1 pad TOP ASDIRECTED PRN PRN Reason: comfort care Discontinued Medications Al Hydroxide/Mg Hydroxide (Mag-Al Plus) 30 ml PO ONETIME ONE Stop: 05/06/20 17:23 Last Admin: 05/06/20 17:38 Dose: 30 ml Documented by: Ampicillin Sodium (Ampicillin) Confirm Administered Dose 1 gm .ROUTE .STK-MED ONE Stop: 05/06/20 04:16 Last Admin: 05/06/20 04:42 Dose: 1 gm Documented by: Ephedrine Sulfate (Ephedrine Sulfate) Confirm Administered Dose 50 mg .ROUTE .STK-MED ONE Stop: 05/06/20 04:16 Fentanyl (Sublimaze) Confirm Administered Dose 100 mcg .ROUTE .STK-MED ONE Stop: 05/06/20 03:07 Furosemide (Lasix) 20 mg PO ONETIME ONE Stop: 05/06/20 06:31 Last Admin: 05/06/20 06:57 Dose: 20 mg Documented by: Furosemide (Lasix) 20 mg IVPUSH ONETIME ONE Stop: 05/06/20 17:22 Last Admin: 05/06/20 17:38 Dose: 20 mg Documented by: Furosemide (Lasix) 20 mg IVPUSH ONETIME ONE Stop: 05/07/20 06:01 Last Admin: 05/07/20 05:00 Dose: 20 mg Documented by: Ampicillin Sodium 2 gm/ Sodium (Chloride) 100 mls @ 200 mls/hr IV ONETIME ONE Stop: 05/06/20 00:30 Last Admin: 05/06/20 00:16 Dose: 200 mls/hr Documented by: Fentanyl/Bupivacaine HCl (Fentanyl/Bupivacaine/Ns 2 Mcg-0.125% 250 Ml) Confirm Administered Dose 250 mls @ as directed .ROUTE .STK-MED ONE Stop: 05/06/20 03:08 Sodium Chloride (Normal Saline) Confirm Administered Dose 50 mls @ as directed .ROUTE .STK-MED ONE Stop: 05/06/20 04:16 - Infant Interaction Disposition, : [place] transfer to higher level of care Interaction: Not Applicable Support Person: Significant Other - Recovery Exam Fundal Tone: Firm Fundal Level: 1 Fingerbreadths Below Umbilicus Fundal Placement: Midline Lochia Amount: Scant Lochia Color: Rubra/Red Perineum Description: Intact, Minimal Bruising/Swelling Episiotomy/Laceration: None Bladder Status: Voiding Urinary Elimination: Voided - Exam General: Alert, Oriented Neck: Supple Lungs: Normal Respiratory Effort Cardiovascular: Regular Rate GI/Abdominal Exam: Soft, Non-Tender Extremities: Pedal Edema Psy/Mental Status: Alert, Normal Affect, Normal Mood - Problem List & Annotations (1) delivery, delivered SNOMED Code(s): 602976680, [id number] Code(s): O60.10X0 - LABOR W DELIVERY, UNSP TRIMESTER, UNSP Status: Acute Current Visit: Yes (2) Preeclampsia SNOMED Code(s): 443071387 Code(s): O14.90 - UNSPECIFIED PRE-ECLAMPSIA, UNSPECIFIED TRIMESTER Status: Acute Current Visit: Yes (3) Edema during SNOMED Code(s): 004011417, 354516934 Code(s): O12.00 - GESTATIONAL EDEMA, UNSPECIFIED TRIMESTER Status: Acute Current Visit: Yes - Problem List Review Problem List Initiated/Reviewed/Updated: Yes - My Orders Last 24 Hours: My Active Orders 05/07/20 Breakfast Fluid Restriction [DIET] Sodium Restricted Diet [DIET] - Plan Plan:: Continue with routine care continue lasix BID and oral fluid restriction. Plan to discharge tomorrow
[2020-05-07] MEDS: Docusate Sodium 100 MG Cap PO PRN (20:49)
[2020-05-08] MEDS ORDERED: hydrOXYzine Pamoate 25 MG Cap PO ONE (01:02)
[2020-05-08] MEDS: Acetaminophen 500 MG Tab PO PRN (06:37)
[2020-05-08] MEDS ORDERED: Furosemide 20 MG/2 ML VIAL IVPUSH ONE (07:00)
--- NOTE | 2020-05-08 08:10 | PCM.PNPP ---
- General Info Date of Service: 05/08/20 Admission Dx/Problem (Free Text): Patient Status Order with Admit Dx/Problem 05/05/20 22:32 Patient Status [ADT] Routine Admission Diagnosis/Problem Admission Diagnosis/Problem Planned Subjective Update: 24yo G1 now P1 s/p uncomplicated at 35w5d after SROM. c/b pre-eclampsia and significant pedal edema. care unremarkable. Patient has received 20mg lasix BID for diuresis purpose. Patient reports significant urine output and improvment of the swelling and legs tightness and tenderness. Denies localized legs pain, tingling or numbness. Minimal bleeding, and pain well control. Ambulate without dizziness PP Day 2 Vera reports significant improvement of the swelling of her legs/feet bilaterally. She also reports less "tightness" in her legs. She reports "finally" getting some good sleep after 0100 and a dose of Vistaril. Small amount of lochia rubra, changed her pad once over night; pain well-controlled. Ambulating well and without dizziness; tolerating diet. Functional Status: Reports: Pain Controlled, Tolerating Diet, Ambulating, Urinating - Review of Systems General: Reports: No Symptoms HEENT: Reports: No Symptoms Pulmonary: Reports: No Symptoms Cardiovascular: Reports: No Symptoms Gastrointestinal: Reports: No Symptoms Genitourinary: Reports: No Symptoms Musculoskeletal: Reports: No Symptoms Skin: Reports: No Symptoms Neurological: Reports: No Symptoms Psychiatric: Reports: No Symptoms - General Info Date of Service: 05/08/20 - Patient Data Vital Signs - Most Recent: Last Vital Signs Temp 97.5 F 05/08/20 06:32 Pulse 84 05/08/20 06:32 Resp 16 05/08/20 06:32 BP 133/80 05/08/20 06:32 Pulse Ox 99 05/08/20 06:32 Weight - Most Recent: 252 lb I&O - Last 24 Hours: Intake & Output 05/07/20 05/08/20 05/08/20 22:59 06:59 14:59 Intake Total 170 Output Total 2600 1300 Balance -2600 -1130 Med Orders - Current: Current Medications Acetaminophen (Tylenol Extra Strength) 500 mg PO Q4H PRN PRN Reason: Pain Acetaminophen (Tylenol Extra Strength) 1,000 mg PO Q4H PRN PRN Reason: Pain Last Admin: 05/08/20 06:37 Dose: 1,000 mg Documented by: Benzocaine/Menthol (Dermoplast Pain Relief 20%-0.5% [place]) 78 gm TOP ASDIRECTED PRN PRN Reason: Perineal Comfort Measure Bisacodyl (Dulcolax) 10 mg RECTAL ONETIME PRN PRN Reason: Constipation Last Admin: 05/06/20 23:27 Dose: 10 mg Documented by: Butorphanol Tartrate (Stadol) 1 mg IVPUSH Q1H PRN PRN Reason: Pain Last Admin: 05/06/20 01:38 Dose: 1 mg Documented by: Calcium Carbonate/Glycine (Tums) 1,000 mg PO Q2HR PRN PRN Reason: Indigestion Last Admin: 05/06/20 11:53 Dose: 1,000 mg Documented by: Carboprost Tromethamine (Hemabate Ds) 250 mcg IM ASDIRECTED PRN PRN Reason: Post Hemorrhage Docusate Sodium (Colace) 100 mg PO BID PRN PRN Reason: Constipation Last Admin: 05/07/20 20:49 Dose: 100 mg Documented by: Emollient Ointment (Lansinoh Hpa) 0 gm TOP ASDIRECTED PRN PRN Reason: Sore Nipples Oxytocin/Sodium Chloride (Oxytocin 30 Unit/500 Ml-Ns) 30 unit in 500 mls @ 500 mls/hr IV TITRATE [facility] Last Admin: 05/06/20 06:19 Dose: 500 mls/hr Documented by: Tranexamic Acid 1,000 mg/ (Sodium Chloride) 110 mls @ 660 mls/hr IV ONETIME PRN PRN Reason: Bleeding Lactated Ringer's (Ringers, Lactated) 1,000 mls @ 150 mls/hr IV ASDIRECTED [facility] Last Admin: 05/06/20 00:17 Dose: 150 mls/hr Documented by: Ampicillin Sodium 1 gm/ Sodium (Chloride) 50 mls @ 100 mls/hr IV Q4H [facility] Last Admin: 05/06/20 04:42 Dose: 100 mls/hr Documented by: Ibuprofen (Motrin) 400 mg PO Q4H PRN PRN Reason: Pain Ibuprofen (Motrin) 800 mg PO Q6H PRN PRN Reason: Pain Last Admin: 05/06/20 11:53 Dose: 800 mg Documented by: Lidocaine HCl (Xylocaine 1%) 50 ml INJECT ONETIME PRN PRN Reason: Laceration repair Methylergonovine Maleate (Methergine) 0.2 mg IM ASDIRECTED PRN PRN Reason: Post Hemorrhage Misoprostol (Cytotec) 200 mcg PO ONETIME PRN PRN Reason: Post Hemorrhage Nalbuphine HCl (Nubain) 10 mg IVPUSH Q1H PRN PRN Reason: Pain (severe 7-10) Oxycodone HCl (Oxycodone) 5 mg PO Q2H PRN PRN Reason: Pain Sodium Chloride (Saline Flush) 10 ml FLUSH ASDIRECTED PRN PRN Reason: Keep Vein Open Sodium Chloride (Saline Flush) 2.5 ml FLUSH ASDIRECTED PRN PRN Reason: Keep Vein Open Sodium Chloride (Normal Saline) 10 ml IV ASDIRECTED PRN PRN Reason: IV Use Sterile Water (Sterile Water For Irrigation) 1,000 ml IRR ASDIRECTED PRN PRN Reason: delivery Witch Connie (Tucks) 1 pad TOP ASDIRECTED PRN PRN Reason: comfort care Discontinued Medications Al Hydroxide/Mg Hydroxide (Mag-Al Plus) 30 ml PO ONETIME ONE Stop: 05/06/20 17:23 Last Admin: 05/06/20 17:38 Dose: 30 ml Documented by: Ampicillin Sodium (Ampicillin) Confirm Administered Dose 1 gm .ROUTE .STK-MED ONE Stop: 05/06/20 04:16 Last Admin: 05/06/20 04:42 Dose: 1 gm Documented by: Ephedrine Sulfate (Ephedrine Sulfate) Confirm Administered Dose 50 mg .ROUTE .STK-MED ONE Stop: 05/06/20 04:16 Fentanyl (Sublimaze) Confirm Administered Dose 100 mcg .ROUTE .STK-MED ONE Stop: 05/06/20 03:07 Furosemide (Lasix) 20 mg PO ONETIME ONE Stop: 05/06/20 06:31 Last Admin: 05/06/20 06:57 Dose: 20 mg Documented by: Furosemide (Lasix) 20 mg IVPUSH ONETIME ONE Stop: 05/06/20 17:22 Last Admin: 05/06/20 17:38 Dose: 20 mg Documented by: Furosemide (Lasix) 20 mg IVPUSH ONETIME ONE Stop: 05/07/20 06:01 Last Admin: 05/07/20 05:00 Dose: 20 mg Documented by: Furosemide (Lasix) 20 mg IVPUSH ONETIME ONE Stop: 05/07/20 18:30 Last Admin: 05/07/20 20:18 Dose: 20 mg Documented by: Furosemide (Lasix) 20 mg IVPUSH ONETIME ONE Stop: 05/08/20 07:01 Last Admin: 05/08/20 06:24 Dose: 20 mg Documented by: Hydroxyzine Pamoate (Vistaril) 50 mg PO ONETIME ONE Stop: 05/08/20 01:03 Last Admin: 05/08/20 01:09 Dose: 50 mg Documented by: Ampicillin Sodium 2 gm/ Sodium (Chloride) 100 mls @ 200 mls/hr IV ONETIME ONE Stop: 05/06/20 00:30 Last Admin: 05/06/20 00:16 Dose: 200 mls/hr Documented by: Fentanyl/Bupivacaine HCl (Fentanyl/Bupivacaine/Ns 2 Mcg-0.125% 250 Ml) Confirm Administered Dose 250 mls @ as directed .ROUTE .STK-MED ONE Stop: 05/06/20 03:08 Sodium Chloride (Normal Saline) Confirm Administered Dose 50 mls @ as directed .ROUTE .STK-MED ONE Stop: 05/06/20 04:16 - Interaction Disposition, : transfer to higher level of care Infant Interaction: Not Applicable Support Person: Significant Other - Recovery Exam Fundal Tone: Firm Fundal Level: 1 Fingerbreadths Below Umbilicus Fundal Placement: Midline Lochia Amount: Small Lochia Color: Rubra/Red Perineum Description: Intact, Minimal Bruising/Swelling Episiotomy/Laceration: None Bladder Status: Voiding Urinary Elimination: Voided - Exam General: Alert, Oriented, Cooperative, No Acute Distress Lungs: Clear to Auscultation, Normal Respiratory Effort Cardiovascular: Regular Rate, Regular Rhythm GI/Abdominal Exam: Soft, Non-Tender Extremities: Pedal Edema, Other (bilateral lower extremity edema; 1+) Skin: Warm, Dry, Intact Neurological: No New Focal Deficit, Normal Speech, Normal Tone, Sensation Intact Psy/Mental Status: Alert, Normal Affect, Normal Mood - Problem List & Annotations (1) delivery, delivered SNOMED Code(s): 312522435, 144551824 Code(s): O60.10X0 - LABOR W DELIVERY, UNSP TRIMESTER, UNSP Status: Acute Priority: High Current Visit: Yes - Problem List Review Problem List Initiated/Reviewed/Updated: Yes - Plan Plan:: Continue with routine care continue lasix BID and oral fluid restriction. Plan to discharge tomorrow PPD2 A: Vera reports significant improvement of the swelling of her legs/feet bilaterally. She also reports less "tightness" in her legs. She reports "fi lizz" getting some good sleep after 0100 and a dose of Vistaril. Small amount of lochia rubra, changed her pad once over night; pain well-controlled. Ambulating well and without dizziness; tolerating diet. P: Routine plan of care. Anticipate discharge later this afternoon/evening. Dr. Leal updated.
--- NOTE | 2020-05-08 09:23 | PCM.DCSUM1 ---
Discharge Summary - Hospital Course Diagnosis: Stroke: No - Discharge Data Discharge Date: 05/08/20 Discharge Disposition: Home, Self-Care 01 Condition: Good - Referral to Home Health Primary Care Physician: PCP None - Patient Instructions Diet: Usual Diet as Tolerated Activity: As Tolerated Driving: Do Not Drive Showering/Bathing: May Shower - Discharge Plan Home Medications: Home Meds Ondansetron [Zofran ODT] 1 tab PO Q6H PRN #4 tab.dis 08/21/18 [Rx] Acetaminophen [Tylenol] 325 mg PO Q4H PRN 05/06/20 [History] Famotidine 40 mg PO DAILY 05/06/20 [History] diphenhydrAMINE [Benadryl] 25 mg PO QID PRN 05/06/20 [History] - Discharge Summary/Plan Comment DC Time >30 min.: Yes - General Info Date of Service: 05/08/20 Functional Status: Reports: Pain Controlled - Review of Systems General: Reports: No Symptoms HEENT: Reports: No Symptoms Pulmonary: Reports: No Symptoms Cardiovascular: Reports: No Symptoms Gastrointestinal: Reports: No Symptoms Genitourinary: Reports: No Symptoms Musculoskeletal: Reports: No Symptoms Skin: Reports: No Symptoms Neurological: Reports: No Symptoms Psychiatric: Reports: No Symptoms - Patient Data Vitals - Most Recent: Last Vital Signs Temp 36.4 C 05/08/20 06:32 Pulse 84 05/08/20 06:32 Resp 16 05/08/20 06:32 BP 133/80 05/08/20 06:32 Pulse Ox 99 05/08/20 06:32 Weight - Most Recent: 114.305 kg I&O - Last 24 hours: Intake & Output 05/07/20 05/08/20 05/08/20 22:59 06:59 14:59 Intake Total 170 Output Total 2600 1300 Balance -2600 -1130 Med Orders - Current: Current Medications Acetaminophen (Tylenol Extra Strength) 500 mg PO Q4H PRN PRN Reason: Pain Acetaminophen (Tylenol Extra Strength) 1,000 mg PO Q4H PRN PRN Reason: Pain Last Admin: 05/08/20 06:37 Dose: 1,000 mg Documented by: Benzocaine/Menthol (Dermoplast Pain Relief 20%-0.5% [place]) 78 gm TOP ASDIRECTED PRN PRN Reason: Perineal Comfort Measure Bisacodyl (Dulcolax) 10 mg RECTAL ONETIME PRN PRN Reason: Constipation Last Admin: 05/06/20 23:27 Dose: 10 mg Documented by: Butorphanol Tartrate (Stadol) 1 mg IVPUSH Q1H PRN PRN Reason: Pain Last Admin: 05/06/20 01:38 Dose: 1 mg Documented by: Calcium Carbonate/Glycine (Tums) 1,000 mg PO Q2HR PRN PRN Reason: Indigestion Last Admin: 05/06/20 11:53 Dose: 1,000 mg Documented by: Carboprost Tromethamine (Hemabate Ds) 250 mcg IM ASDIRECTED PRN PRN Reason: Post Hemorrhage Docusate Sodium (Colace) 100 mg PO BID PRN PRN Reason: Constipation Last Admin: 05/07/20 20:49 Dose: 100 mg Documented by: Emollient Ointment (Lansinoh Hpa) 0 gm TOP ASDIRECTED PRN PRN Reason: Sore Nipples Oxytocin/Sodium Chloride (Oxytocin 30 Unit/500 Ml-Ns) 30 unit in 500 mls @ 500 mls/hr IV TITRATE [facility] Last Admin: 05/06/20 06:19 Dose: 500 mls/hr Documented by: Tranexamic Acid 1,000 mg/ (Sodium Chloride) 110 mls @ 660 mls/hr IV ONETIME PRN PRN Reason: Bleeding Lactated Ringer's (Ringers, Lactated) 1,000 mls @ 150 mls/hr IV ASDIRECTED [facility] Last Admin: 05/06/20 00:17 Dose: 150 mls/hr Documented by: Ampicillin Sodium 1 gm/ Sodium (Chloride) 50 mls @ 100 mls/hr IV Q4H [facility] Last Admin: 05/06/20 04:42 Dose: 100 mls/hr Documented by: Ibuprofen (Motrin) 400 mg PO Q4H PRN PRN Reason: Pain Ibuprofen (Motrin) 800 mg PO Q6H PRN PRN Reason: Pain Last Admin: 05/06/20 11:53 Dose: 800 mg Documented by: Lidocaine HCl (Xylocaine 1%) 50 ml INJECT ONETIME PRN PRN Reason: Laceration repair Methylergonovine Maleate (Methergine) 0.2 mg IM ASDIRECTED PRN PRN Reason: Post Hemorrhage Misoprostol (Cytotec) 200 mcg PO ONETIME PRN PRN Reason: Post Hemorrhage Nalbuphine HCl (Nubain) 10 mg IVPUSH Q1H PRN PRN Reason: Pain (severe 7-10) Oxycodone HCl (Oxycodone) 5 mg PO Q2H PRN PRN Reason: Pain Sodium Chloride (Saline Flush) 10 ml FLUSH ASDIRECTED PRN PRN Reason: Keep Vein Open Sodium Chloride (Saline Flush) 2.5 ml FLUSH ASDIRECTED PRN PRN Reason: Keep Vein Open Sodium Chloride (Normal Saline) 10 ml IV ASDIRECTED PRN PRN Reason: IV Use Sterile Water (Sterile Water For Irrigation) 1,000 ml IRR ASDIRECTED PRN PRN Reason: delivery Brandon Rosales (Tucks) 1 pad TOP ASDIRECTED PRN PRN Reason: comfort care Discontinued Medications Al Hydroxide/Mg Hydroxide (Mag-Al Plus) 30 ml PO ONETIME ONE Stop: 05/06/20 17:23 Last Admin: 05/06/20 17:38 Dose: 30 ml Documented by: Ampicillin Sodium (Ampicillin) Confirm Administered Dose 1 gm .ROUTE .STK-MED ONE Stop: 05/06/20 04:16 Last Admin: 05/06/20 04:42 Dose: 1 gm Documented by: Ephedrine Sulfate (Ephedrine Sulfate) Confirm Administered Dose 50 mg .ROUTE .STK-MED ONE Stop: 05/06/20 04:16 Fentanyl (Sublimaze) Confirm Administered Dose 100 mcg .ROUTE .STK-MED ONE Stop: 05/06/20 03:07 Furosemide (Lasix) 20 mg PO ONETIME ONE Stop: 05/06/20 06:31 Last Admin: 05/06/20 06:57 Dose: 20 mg Documented by: Furosemide (Lasix) 20 mg IVPUSH ONETIME ONE Stop: 05/06/20 17:22 Last Admin: 05/06/20 17:38 Dose: 20 mg Documented by: Furosemide (Lasix) 20 mg IVPUSH ONETIME ONE Stop: 05/07/20 06:01 Last Admin: 05/07/20 05:00 Dose: 20 mg Documented by: Furosemide (Lasix) 20 mg IVPUSH ONETIME ONE Stop: 05/07/20 18:30 Last Admin: 05/07/20 20:18 Dose: 20 mg Documented by: Furosemide (Lasix) 20 mg IVPUSH ONETIME ONE Stop: 05/08/20 07:01 Last Admin: 05/08/20 06:24 Dose: 20 mg Documented by: Hydroxyzine Pamoate (Vistaril) 50 mg PO ONETIME ONE Stop: 05/08/20 01:03 Last Admin: 05/08/20 01:09 Dose: 50 mg Documented by: Ampicillin Sodium 2 gm/ Sodium (Chloride) 100 mls @ 200 mls/hr IV ONETIME ONE Stop: 05/06/20 00:30 Last Admin: 05/06/20 00:16 Dose: 200 mls/hr Documented by: Fentanyl/Bupivacaine HCl (Fentanyl/Bupivacaine/Ns 2 Mcg-0.125% 250 Ml) Confirm Administered Dose 250 mls @ as directed .ROUTE .STK-MED ONE Stop: 05/06/20 03:08 Sodium Chloride (Normal Saline) Confirm Administered Dose 50 mls @ as directed .ROUTE .STK-MED ONE Stop: 05/06/20 04:16 - Exam General: Reports: Alert, Oriented HEENT: Reports: Pupils Equal, Pupils Reactive, EOMI, Mucous Membr. Moist/[place] Neck: Reports: Supple Lungs: Reports: Clear to Auscultation, Normal Respiratory Effort Cardiovascular: Reports: Regular Rate, Regular Rhythm GI/Abdominal Exam: Normal Bowel Sounds, Soft, Non-Tender, No Organomegaly, No Distention, No Abnormal Bruit, No Mass, Pelvis Stable (Female) Exam: Normal External Exam, Normal Speculum Exam, Normal Bimanual Exam Rectal (Female) Exam: Normal Exam, Normal Rectal Tone Back Exam: Reports: Normal Inspection, Full Range of Motion Extremities: Normal Inspection, Normal Range of Motion, Non-Tender, No Pedal Edema, Normal Capillary Refill Skin: Reports: Warm, Dry, Intact Wound/Incisions: Reports: Healing Well Neurological: Reports: No New Focal Deficit Psy/Mental Status: Reports: Alert, Normal Affect, Normal Mood
== END 2020-05-08 11:02 | disposition home or self-care (01) | DRG 560 ==
LOC: MW.OBCHECK 22:17 → MW.OB 22:18 → MW.OBCHECK 22:32 → MW.OB 22:32 → OBSVTOIN 05-06 06:18 → MW.OB 05-06 14:00
PROVIDERS: ADMIT Obstetrics & Gynecology; ATTEND Obstetrics & Gynecology
PROC: 10E0XZZ Delivery of Products of Conception, External Approach (ICD-10-PCS; principal; 2020-05-06)
PROC: 3E0R3BZ Introduction of Anesthetic Agent into Spinal Canal, Percutaneous Approach (ICD-10-PCS; 2020-05-06)
DX: O14.94 Unspecified pre-eclampsia, complicating childbirth (principal); Z3A.35 35 weeks gestation of pregnancy; Z37.0 Single live birth; O60.14X0 Preterm labor third trimester with preterm delivery third trimester, not applicable or unspecified; Z20.828 Contact with and (suspected) exposure to other viral communicable diseases
CPT/HCPCS: 36415; 51702; 59025; 59409; 82565; 85027; 86592; 86850; 86900; 86901; A9270-GY; J0290; J0595; J1940; J2590; J3010; J7050; J7120; U0002

== ENCOUNTER 2025-01-17 09:55 | Emergency (ER) | payer SELFPAY ==
[2025-01-17] MEDS ORDERED: Sodium Chloride 0.9% 10 ML Syringe FLUSH PRN (10:04)
[2025-01-17] MEDS ORDERED: Sodium Chloride 0.9% 2.5 ML Syringe FLUSH PRN (10:04)
[2025-01-17 10:32] LABS: BASOPHILS ABSOLUTE AUTO 0.06 K/uL (0.00-0.20); BASOPHILS PERCENT AUTO 0.6 % (0.0-1.0); EOSINOPHILS ABSOLUTE AUTO 0.57 K/uL (0.00-0.45); EOSINOPHILS PERCENT AUTO 6.1 % (0.0-6.0); IMMATURE GRAN ABSOLUTE AUTO 0.02 K/uL (0.00-0.05); IMMATURE GRAN PERCENT AUTO 0.2 % (0.0-0.4); LYMPHOCYTES ABSOLUTE AUTO 4.95 K/uL (1.00-4.80); LYMPHOCYTES PERCENT AUTO 52.8 % (24.0-44.0); MEAN PLATELET VOLUME 9.9 fL (9.4-12.3); MONOCYTES ABSOLUTE AUTO 0.57 K/uL (0.00-0.80); MONOCYTES PERCENT AUTO 6.1 % (0.0-8.0); NEUTROPHILS ABSOLUTE AUTO 3.21 K/uL (1.80-7.70); NEUTROPHILS PERCENT AUTO 34.2 % (41.0-71.0); NRBC ABSOLUTE 0.00 K/uL (0.00-0.02); NRBC PERCENT 0.0 /100WBC (0.0-0.2); PLATELET COUNT,PLT 247 K/uL (150-400); RED BLOOD CELL COUNT 4.42 M/uL (4.10-5.30); WHITE BLOOD CELL COUNT,WBC 9.38 K/uL (3.9-11.3)
[2025-01-17 11:06] LABS: LACTIC ACID 1.8 mmol/L (0.4-2.0)
[2025-01-17 11:08] LABS: A/G RATIO 1.2 (0.9-1.6); ALANINE AMINOTRANSFERASE,ALT 28 IU/L (14-63); ASPARTATE AMNIOTRANSFERASE,AST 20 IU/L (15-37); BILIRUBIN TOTAL 0.3 mg/dL (0.2-1.0); BLOOD UREA NITROGEN,BUN 13 mg/dL (7.0-18.0); CARBON DIOXIDE,CO2 26.4 mmol/L (21.0-32.0); CHLORIDE,CL 106 mmol/L (98-107); CREATININE 1.0 mg/dL (0.6-1.0); EST CRCL DRUG DOSING (CG) 74.69 mL/min; GLUCOSE RANDOM 119 mg/dL (74-106); POTASSIUM,K 3.9 mmol/L (3.5-5.1); PROTEIN TOTAL,TP 6.7 g/dL (6.4-8.2); SODIUM,NA 140 mmol/L (136-145); TSH ULTRASENSITIVE 0.98 uIU/mL (0.36-3.74)
[2025-01-17 11:13] LABS: ESTIMATED GFR 78 mL/min (>60)
== END 2025-01-17 13:00 | disposition home or self-care (01) ==
LOC: MW.ED 09:55
DX: T43.591A Poisoning by other antipsychotics and neuroleptics, accidental (unintentional), initial encounter (principal); R55 Syncope and collapse; R74.8 Abnormal levels of other serum enzymes; E66.9 Obesity, unspecified; Z75.3 Unavailability and inaccessibility of health-care facilities; Z79.899 Other long term (current) drug therapy; Z68.37 Body mass index [BMI] 37.0-37.9, adult
CPT/HCPCS: 36415; 71045; 80053; 83605; 83690; 83735; 84443; 84484; 84703; 85025; 93005; 96360; 99284; J7030; 93010